=== PATIENT | female | born 1945 ===

== ENCOUNTER 2017-09-17 07:44 | Day surgery (SDC) | payer OTHER, MEDICARE ==
--- NOTE | 2017-09-16 13:24 | GHP ---
[f rep st] PREOP HISTORY AND PHYSICAL HISTORY OF PRESENT ILLNESS: Patient is a very healthy, active female who presented to [facility] in August of 2017 with a chief complaint of a severe right bunion deformity. She had had a bump removed previously and healed very nicely, and this had kept her feet comfortable for the last 4 years but, at this point, she is just tired of dealing with the bunion getting worse over time and wanted it taken care of on a permanent basis. She is a very healthy, active 72-year-old female with a normal body mass index. She walks regularly for exercise activity, up to 2 miles per day. She has had multiple foot surgeries in the past without complication or problems to anesthesia. The bump on the medial aspect of her right great toe has progressively gotten worse over time. She has tried wider shoes, change in insoles, all of which have helped a little bit over the years but, at this point , she just wants it corrected. MEDICATIONS: She takes lovastatin. She takes Synthroid and avfz-nbk-zzlzzsk supplements, including a multivitamin. FAMILY HISTORY: Father was at 72 due to heart problems. ALLERGIES: Sulfa, bacitracin; both cause a rash. SOCIAL HISTORY: She has never used any tobacco products. She drinks a glass of wine in the evening time almost daily. At her pre-op appointment, we discussed risks and complications of the procedure. I went over a review of systems with her also. She denied any recent headaches, vision, hearing, nasal or throat problems. She denies any cardiac arrhythmias, chest pain, shortness of breath, GI distress, neurologic, dermatologic, or other musculoskeletal problems. PHYSICAL EXAM: EXTREMITIES: Pulses were 2/4 on the dorsal pedal and posterior tibial arteries. Capillary fill is less than 5 seconds to digits x10. She had minimal varicosities and no edema at either extremity. NEUROLOGIC: Sharp, dull , light touch proprioception all intact and symmetric to the digital level. She showed normal temperature, texture, and turgor, with normal hair distribution bilateral. Her manual muscle testing was 5/5 to the anterior lateral and posterior leg muscles, as well as the intrinsic arch muscles. She has a general splay foot deformity. X-RAY: Elevated intermetatarsal hallux abductus angles. She seems to have a decent bone density on radiograph, but the bunion has gotten severe enough to where the malalignment is starting to create degeneration of the joint and some joint space narrowing. ASSESSMENT: Hallux valgus deformity, right great toe. PLAN: Procedure is a modified Mccann bunionectomy with osteotomy screw fixation and a possible Miles osteotomy with screw fixation. At her preop appointment, we discussed risks and complications, including residual pain, delayed healing. Patient understood. Consent form was signed. She was given both oral and written postop instructions, along with a prescription for Percocet 10/325, #30, one tab p.o. q.4-6h. p.r.n. pain postoperatively. She will be followed up x3 days postop at [facility] [place]. She was given my cell phone number for 24-hour call, should she have any problems or questions. /[id number]/MODL MTDD
[2017-09-17] MEDS ORDERED: LIDOCAINE 1% 2 ML INJ ID PRN (08:20)
[2017-09-17] MEDS ORDERED: LR 1,000 ML IV ONE (08:20)
[2017-09-17] MEDS ORDERED: ceFAZolin 2 GM in NS 100 ML IV ONE (08:58)
[2017-09-17] MEDS ORDERED: ceFAZolin 2 GM/SWFI 2 GM/20 ML SYR IVP ONE (09:15)
[2017-09-17] MEDS ORDERED: LABETALOL HCL 5 MG/ML 20 ML MDV IVP ONE (09:22)
--- NOTE | 2017-09-17 09:24 | PDANEPAE ---
ANE History of Present Illness right foot bunion severely hypertensive in pre-op, no h/o htn, normal pre-op visit earlier in week at PCP. likely 2/2 procedural anxiety. treated with labetalol and versed with appropriate improvement of condition. ANE Past Medical History - Cardiovascular History Hx Hypertension: No Hx Arrhythmias: No Hx Chest Pain: No Hx Coronary Artery / Peripheral Vascular Disease: No Hx CHF / Valvular Disease: No Hx Palpitations: No - Pulmonary History Hx COPD: No Hx Asthma/Reactive Airway Disease: No Hx Recent Upper Respiratory Infection: No Hx Oxygen in Use at Home: No Hx Sleep Apnea: No Sleep Apnea Screening Result - Last Documented: Negative - Neurologic History Hx Cerebrovascular Accident: No Hx Seizures: No Hx Dementia: No Neurologic History Comment: 2016 MRI SHOWED FOR EAR PROBLEM SHOWED SOME PAST TIAs - WAS WORKED UP AND ALL TESTING WAS NORMAL - NO RECENT PROBLEMS - Endocrine History Hx Diabetes: Yes Endocrine History Comment: HYPOTHYROID - Renal History Hx Renal Disorders: No - Liver History Hx Hepatic Disorders: No - Neurological & Psychiatric Hx Hx Neurological and Psychiatric Disorders: No - Cancer History Hx Cancer: No - Congenital Disorder History Hx Congenital Disorders: No - GI History Hx Gastrointestinal Disorders: No - Other Health History Other Health History: HX - ORAL LICHEN PLANIS W/NO RECENT OUTBREAKS - Chronic Pain History Chronic Pain: Yes (HIP AND KNEES) - Surgical History Prior Surgeries: R FOOT SURG. BREAST LUMP ANE Review of Systems Review of Systems: - Exercise capacity METS (RN): 4 METS ANE Patient History - Allergies Allergies/Adverse Reactions: bacitracin Allergy (Verified 09/17/17 09:09) Sulfa (Sulfonamide Antibiotics) Allergy (Verified 09/17/17 09:09) - Home Medications Home medications: home medication list seen and reviewed Home Medications: Aspirin 09/15/17 [Last Taken 09/13/17] Herbals/Supplements -Info Only 09/15/17 [Last Taken 09/14/17] Latanoprost 09/15/17 [Last Taken 09/16/17 22:00] Levothyroxine 09/15/17 [Last Taken 09/17/17 06:00] Lovastatin 09/15/17 [Last Taken 09/17/17 06:00] TIMOPTIC 0.25% (*) 09/15/17 [Last Taken 09/17/17 06:00] Zolpidem Tartrate 09/15/17 [Last Taken 3 Months Ago ~06/19/17] Melatonin 09/17/17 [Last Taken 09/16/17 22:00] - NPO status NPO Since - Liquids (Date): 09/16/17 NPO Since - Liquids (Time): 23:30 NPO Since - Solids (Date): 09/16/17 NPO Since - Solids (Time): 19:00 - Anes Hx Anes Hx: no prior problems - Smoking Hx Smoking Status: Former smoker - Family Anes Hx Family Hx Anesthesia Complications: NEG ANE Labs/Vital Signs - Vital Signs Blood Pressure: 205/93 Heart Rate: 74 Respiratory Rate: 16 O2 Sat (%): 97 Height: 160.02 cm Weight: 61.235 kg ANE Physical Exam - Airway Neck exam: FROM Mallampati Score: Class 1 Mouth exam: normal dental/mouth exam - Pulmonary Pulmonary: no respiratory distress - Cardiovascular Cardiovascular: regular rate and rhythym - ASA Status ASA Status: II ANE Anesthesia Plan Anesthesia Plan: GA with mask Urgent/Emergent Case: Melissa quevedo completed preop but documented later for safe timely pt care
[2017-09-17] MEDS ORDERED: LABETALOL HCL 5 MG/ML 20 ML MDV ONE (09:31)
[2017-09-17] MEDS ORDERED: MIDAZOLAM 2 MG/2 ML VIAL IVP ONE (09:37)
[2017-09-17] MEDS ORDERED: MIDAZOLAM 2 MG/2 ML VIAL ONE (09:39)
[2017-09-17] MEDS ORDERED: PROPOFOL/EMULSION 500 MG/50 ML BOTTLE IV ONE (09:40)
[2017-09-17] MEDS ORDERED: fentaNYL 100 MCG/2 ML INJ ONE (09:40)
[2017-09-17] MEDS ORDERED: ceFAZolin 1 GM VIAL ONE (09:47)
[2017-09-17] MEDS ORDERED: LIDOCAINE 2% 5 ML SDV ONE (09:47)
[2017-09-17] MEDS ORDERED: ceFAZolin 1 GM/5 ML SYR ONE (09:48)
[2017-09-17] MEDS ORDERED: LIDO/EPI 1% **for epidural** 10 ML SDV ONE ×2 (09:49→10:07)
[2017-09-17] MEDS ORDERED: LIDO/EPI 1% **for epidural** 30 ML SDV ONE (09:50)
[2017-09-17] MEDS ORDERED: LIDO/EPI 2% **for epidural** 20 ML SDV ONE (09:51)
[2017-09-17] MEDS ORDERED: LIDOCAINE 1% 300 MG/30 ML SDV ONE (09:52)
[2017-09-17] MEDS ORDERED: BUPIVACAINE 0.25% 30 ML SDV ONE (09:52)
[2017-09-17] MEDS ORDERED: LR 500 ML IV PRN (11:06)
[2017-09-17] MEDS ORDERED: NALOXONE HCL 0.4 MG/ML INJ IVP PRN (11:06)
[2017-09-17] MEDS ORDERED: fentaNYL 100 MCG/2 ML INJ IVP PRN (11:06)
[2017-09-17] MEDS ORDERED: HYDROmorphONE/DILAUDID 1 MG/ML INJ IVP PRN (11:06)
[2017-09-17] MEDS ORDERED: ALBUTEROL 3 ML DEYVIAL IH PRN (11:06)
[2017-09-17] MEDS ORDERED: LABETALOL HCL 5 MG/ML 20 ML MDV IVP PRN (11:06)
[2017-09-17] MEDS ORDERED: ONDANSETRON 4 MG/2 ML VIAL IVP PRN (11:06)
[2017-09-17] MEDS ORDERED: PROMETHAZINE HCL 25 MG/ML INJ IVP PRN (11:06)
[2017-09-17] MEDS ORDERED: OXYCODONE/APAP 5/325 TAB PO PRN (11:06)
[2017-09-17] MEDS ORDERED: ACETAMINOPHEN 500 MG TAB PO PRN (11:06)
--- NOTE | 2017-09-17 11:06 | POSTANESTH ---
Post Anesthetic Evaluation Cardiovascular Status: Normal, Stable, Similar to Pre-Op Cond Respiratory Status: Normal, Stable Level of Consciousness/Mental Status: Can Participate in Eval Pain Control: Adequate, Prn Tx Ordered Nausea/Vomiting Control: Adequate, Prn Tx Ordered Complications Possibly Related to Anesthesia: None Noted
[2017-09-17 11:58] VITALS: TEMP 97
[2017-09-17 12:11] VITALS: RESP 18; O2SAT 95
[2017-09-17 12:16] VITALS: BP 157/82; PULSE 65
--- NOTE | 2017-09-20 15:56 | GOP ---
[f rep st] OPERATIVE REPORT DATE OF OPERATION: 09/17/2017 SURGEON: Chidi Hurst DPM ANESTHESIA: IV MAC plus local infiltration of 5 cc of 0.25% Marcaine plain and 5 cc of 1% lidocaine with 1:200,000 dilution of epinephrine in a Jackson type block on the right midfoot. PREOPERATIVE DIAGNOSIS: Hallux valgus deformity, right great toe. POSTOPERATIVE DIAGNOSIS: Hallux valgus deformity, right great toe. PROCEDURE PERFORMED: 1. Modified Mccann bunionectomy with osteotomy screw fixation. 2. Miles osteotomy with screw fixation. FINDINGS: ESTIMATED BLOOD LOSS: Less than 10 cc. DESCRIPTION OF PROCEDURE: The patient was taken the operating room, placed in supine position. Afte r local MAC anesthesia, the right lower extremity was elevated, prepped and draped in the usual steri le OR fashion, achieving a sterile field about the entire distal aspect of the extremity. After elev ation and exsanguination, the tourniquet was inflated to 250 mmHg. Attention was directed to the malick ayden aspect of the right great toe joint, where an approximately 3-inch linear incision was made media l to the extensor hallucis longus tendon. Dissection was carried down to the level of the joint caps ule, taking care to preserve the neurovascular status to the area. Superficial vessels were clamped and bovied as necessary. The 1st intermetatarsal space was entered via sharp and blunt dissection. The adductor hallucis musc le was identified at its tendinous attachment into the base of the proximal phalanx, and it was freed from its attachment. At this point, the great toe could be moved manually into a corrected position . The capsule was then entered via linear incision reflected medially and laterally along with the d istal periosteum of the metatarsal. A small bony eminence was noted on the medial aspect of the meta tarsal head. This was removed utilizing a bone saw. The 0.035 K-wire was then placed through the me taphysis of the metatarsal, orienting the K-wire such that it would slightly plantar flex the metatar ayden head once the V or Chevron osteotomy was carried out. This V osteotomy was carried out. The met atarsal head was shifted laterally, impacted upon itself and held fast with the same 0.035 K-wire as temporary fixation. Utilizing AO technique, a single 2.4 mm Osteomed screw was placed through the do rsal wing of the osteotomy and retrograded back into the metatarsal with excellent compression noted. The K-wire was removed from the operative site. Redundant bone was removed medially and rasped smo oth utilizing a rotary bur. The area was flushed copiously with dilute antibiotic solution. The great toe was then taken through range of motion. It was deemed to be still pushing on the 2nd t oe, so a secondary osteotomy was needed. Attention was directed to the proximal phalanx, where the p eriosteum was reflected medially and laterally. A wedge osteotomy was then carried out through the d orsal aspect of the proximal phalanx with the apex of the wedge osteotomy proximal lateral on the pro ximal phalanx. This wedge of bone was removed from the operative site. A fracture reduction clamp w as utilized to shift the great toe away from the 2nd and clamp the osteotomy as temporary fixation. Again utilizing AO technique, two 2.4 mm Osteomed screws were placed perpendicular to the osteotomy s ite with excellent compression noted intraoperatively. The fracture reduction clamp was removed from the operative site. The great toe was taken through range of motion, deemed to be anatomically alig hoang. Redundant capsule was capsulotomized. I did inspect the sesamoids, they looked like they had v cruz good cartilage. There was some slight thinning of the cartilage on the metatarsal head, but in g eneral the cartilage looked pretty good, both on the metatarsal head and the base of the proximal pha lanx. The area was flushed copiously with dilute antibiotic solution 3 different times. The capsule was then reapproximated utilizing 3-0 Vicryl in a simple interrupted suture. Periosteum was reappro ximated utilizing 4-0 Vicryl in a simple interrupted suture. Subcu closure was carried out via 4-0 V icryl in a horizontal mattress suture and skin closure was carried out via 4-0 Prolene in a running s ubcuticular stitch. The incision was reinforced with Mastisol and Steri-Strips, sterile dressing, Ad aptic, 4 x 4, Stefan, Coban, and a moderately compressive dressing. The tourniquet was released after 50 minutes. All digits immediately returned to uniform pink color with normal capillary refill. The patient went into recovery in a satisfactory state. Her vital sig ns remained stable throughout the entire procedure. It should be noted that preoperatively, she did have some hypertension. She responded to medication. Intraoperatively and postoperatively, she has not had any elevation in blood pressure. She will be followed up x3 days postop at [facility] [place]. She was given my cell [employer] ne number for 24-hour call should she have any problems or questions. HEMOSTASIS: Tourniquet at 250 mmHg for a total tourniquet time of 50 minutes. COMPLICATIONS: There were no complications. DRAINS: No drains were placed in the operative site. /[id number]/MODL
== END 2017-09-17 12:55 | disposition home or self-care (01) ==
LOC: FSGY 07:44
PROVIDERS: ATTEND Podiatrist
PROC: 0QBN0ZZ Excision of Right Metatarsal, Open Approach (ICD-10-PCS; principal; 2017-09-17 09:15)
PROC: 0QSQ0ZZ Reposition Right Toe Phalanx, Open Approach (ICD-10-PCS; principal; 2017-09-17 09:15)
DX: M21.611 Bunion of right foot (principal); E78.5 Hyperlipidemia, unspecified; E03.9 Hypothyroidism, unspecified; I10 Essential (primary) hypertension; Z88.2 Allergy status to sulfonamides
CPT/HCPCS: C1713; J0171; J0690; J2250; J2704; J3010

== ENCOUNTER → 2018-08-19 | Day surgery (SDC) | payer OTHER, MEDICARE ==
[~2018-08-19] MED LIST: DEPO METHYLPREDNISOLONE 40 MG/ML SDV ONE; IOPAMIDOL (ISOVUE 370) 100 ML BTL IV ONE; LIDOCAINE 1% 300 MG/30 ML SDV ONE; ROPIVACAINE HCL 150 MG/30 ML INJ ONE
== END | disposition home or self-care (01) ==
LOC: FIMAGING 10:43
PROVIDERS: ATTEND Radiology Diagnostic Radiology
DX: M46.1 Sacroiliitis, not elsewhere classified (principal); M25.552 Pain in left hip
CPT/HCPCS: J1030; J2795; Q9967